=== PATIENT | female | born 1975 | race Caucasian/White ===

== ENCOUNTER 2016-10-11 11:15 | Outpatient (RCR) | payer BC, OTHER ==
[~2016-10-11 11:15] MED LIST: BENZ100C18 PO; CEFP500T4 PO; CPR500T; CYCL-97; DOXY100C49 PO; HCA25SU PR; HYDR-229; HYDR-3714 PO; ONDA4TAB11 PO; TRAM-21 PO; YAZMINE
== END 2016-10-17 | disposition home or self-care (01) ==
PROVIDERS: ATTEND Orthopaedic Surgery Orthopaedic Surgery of the Spine
DX: M54.5 Low back pain (principal)

== ENCOUNTER 2016-12-13 11:15 | Outpatient (RCR) | payer OTHER | END 2016-12-14 08:48 | disposition home or self-care (01) | PROVIDERS: ATTEND Orthopaedic Surgery Orthopaedic Surgery of the Spine | DX: M54.5 Low back pain (principal); M54.2 Cervicalgia ==

== ENCOUNTER 2017-08-02 13:35 | Outpatient (RCR) | payer BC | END 2017-09-20 09:10 | disposition home or self-care (01) | DX: M25.552 Pain in left hip (principal); M54.5 Low back pain ==

== ENCOUNTER 2018-05-13 13:58 | Outpatient (RCR) | payer BC | END 2018-07-10 | disposition home or self-care (01) | DX: M25.512 Pain in left shoulder (principal); M54.6 Pain in thoracic spine ==

== ENCOUNTER → 2019-02-07 | Outpatient (CLI) | payer BC ==
--- NOTE | 2019-02-07 17:05 | Diagnostic Imaging Report ---
INDICATION: Routine screening. COMPARISON: Comparison is made with prior mammograms from 10/18/2015 and 08/25/2013. TECHNIQUE: 2-D and 3-D bilateral screening mammography was performed. The current study was also evaluated with a Computer Aided Detection (CAD) system. 3-D tomosynthesis was also performed and reviewed. FINDINGS: Scattered fibroglandular densities are identified bilaterally. A density in the central right breast on the CC view appears slightly more prominent on this current exam. No corresponding density on the right is seen. Additional views are recommended. Left breast is unremarkable. No suspicious calcifications are seen. There are benign calcifications present. Axillae are unremarkable. IMPRESSION: Right breast density. Additional views are recommended for further evaluation. ACR BI-RADS Category 0: Incomplete. (Needs additional imaging evaluation). Result letter will be mailed to the patient. Note: At least 10% of breast cancer is not imaged by mammography. Dictated by: Dictated on workstation # [id number]
== END ==
LOC: RAD 14:33
PROVIDERS: ATTEND Nurse Practitioner Family
DX: Z12.31 Encounter for screening mammogram for malignant neoplasm of breast (principal)
CPT/HCPCS: 77067

== ENCOUNTER → 2019-02-21 | Outpatient (CLI) | payer BC ==
--- NOTE | 2019-02-21 16:57 | Diagnostic Imaging Report ---
INDICATION: Right breast density. Patient presents for additional views. COMPARISON: Correlation is made with screening study from 02/07/2019. EXAMINATION: Unilateral right 2D and 3D diagnostic mammography was performed including spot compression CC and 90 degree lateral view. FINDINGS: Initial views fail to demonstrate a discrete mass. The area of density noted on the screening CC view shows normal dispersion and most likely represents superimposed fibroglandular tissue. No suspicious calcifications are seen. IMPRESSION: Additional views fail to demonstrate a discrete mass. The patient may return to routine annual screening mammography. ACR BI-RADS Category 1: Negative. Result letter will be mailed to the patient. Note: At least 10% of breast cancer is not imaged by mammography. Dictated by: Dictated on workstation # [id number]
== END ==
LOC: RAD 13:43
PROVIDERS: ATTEND Nurse Practitioner Family
DX: R92.2 Inconclusive mammogram (principal)

== ENCOUNTER → 2019-04-29 | Outpatient (CLI) | payer BC ==
--- NOTE | 2019-04-29 14:54 | Diagnostic Imaging Report ---
INDICATION: Cough. TIME OF EXAM: 2:13 PM CORRELATION is made with prior chest from 08/01/2012. FINDINGS: The heart size is normal. The pulmonary vascularity is unremarkable. The lungs are clear. No infiltrate, effusion or pneumothorax is detected. IMPRESSION: No acute cardiopulmonary process is detected. Dictated by: Dictated on workstation # [id number]
== END ==
LOC: RAD 13:44
PROVIDERS: ATTEND Nurse Practitioner Family
DX: R05 Cough (principal)
CPT/HCPCS: 71046

== ENCOUNTER → 2020-02-16 | Outpatient (CLI) | payer BC ==
--- NOTE | 2020-02-16 16:49 | Diagnostic Imaging Report ---
PROCEDURE: US Non-ob pelvis comp/trans. TECHNIQUE: Multiple realtime grayscale images were obtained of the pelvis in various projections endovaginally. Transabdominal imaging was also performed. INDICATION: Irregular menses. FINDINGS: Uterus measures 7.7 x 4.2 x 4.6 cm. There is a slightly hypoechoic solid nodule in the fundus of the uterus measuring 2.6 x 2 cm. Endometrial stripe is 3 mm. The right ovary measures 4.5 x 4.2 x 3.9 cm. There is a complex hypoechoic mass in the right ovary measuring approximately 4 x 4 cm. There is no free fluid. The left ovary is not visualized. IMPRESSION: 1. Right adnexal mass complex and partially solid in nature measuring upwards of 4 cm. Follow-up is indicated. Would consider CT scan of the pelvis with and without contrast. 2. The myometrial fundal mass consistent with fibroid measuring 2.6 cm in greatest dimension. Dictated by: Dictated on workstation # [id number]
--- NOTE | 2020-02-17 10:27 | Diagnostic Imaging Report ---
INDICATION: Routine screening. COMPARISON: 02/07/2019 and 10/18/2015. TECHNIQUE: 2D and 3D bilateral screening mammography was performed with CAD. FINDINGS: Both breasts remain heterogeneously dense, limiting the sensitivity of mammography. The parenchymal pattern is stable. No mass or malignant appearing microcalcifications are seen. The axillae are unremarkable. IMPRESSION: No mammographic features suspicious for malignancy are identified. ACR BI-RADS Category 1: Negative. Result letter will be mailed to the patient. Note: At least 10% of breast cancer is not imaged by mammography. Dictated by: Dictated on workstation # [id number]
== END ==
LOC: RAD 14:16
PROVIDERS: ATTEND Family Medicine
DX: Z12.31 Encounter for screening mammogram for malignant neoplasm of breast (principal); N92.6 Irregular menstruation, unspecified; R22.2 Localized swelling, mass and lump, trunk
CPT/HCPCS: 76830; 76856; 77063; 77067

== ENCOUNTER → 2020-02-23 | Outpatient (CLI) | payer BC ==
[~2020-02-23] MED LIST changes: +CATHETER FLUSH 10 ML SYR IV PRN; +HOLD METFORMIN - RECEIVED CONTRAST 20 ML VIAL IV SCH; +IOHEXOL 350 MG/ML 100 ML (OMNIPAQUE 350) VIAL IV ONE; +NS 100 ML (IVPB) BAG IV ONE
--- NOTE | 2020-02-23 16:56 | Diagnostic Imaging Report ---
PROCEDURE; CT pelvis with and without contrast. TECHNIQUE: After oral contrast administration, imaging was obtained from the iliac crest to the lesser trochanters. Repeat imaging was performed after intravenous contrast administration. Auto Exposure Controls were utilized during the CT exam to meet ALARA standards for radiation dose reduction. INDICATION: Pelvic pain and right groin pain. Multiple menstrual cycles this month. FINDINGS: The uterus is not enlarged. The ovaries show mild enlargement on the right with multiple cysts. Right ovary measures approximately 4.3 cm in greatest dimension. There are no pelvic masses noted. There is no free fluid. No free air. Bladder is nondistended. There is enhancement of the bladder on delayed images. Bowel gas pattern appears normal. The colon shows normal stool and gas pattern. The appendix is not specifically identified. There is no evidence of appendicolith. No free air or free fluid. No iliac chain adenopathy of pathologic size. No inguinal adenopathy. No evidence of hernia. No blastic or lytic bony changes. IMPRESSION: Mild enlargement of the right ovary showing several small cysts. No other abnormalities noted. Dictated by: Dictated on workstation # [id number]
== END ==
LOC: RAD 16:15
PROVIDERS: ATTEND Family Medicine
DX: N83.201 Unspecified ovarian cyst, right side (principal)
CPT/HCPCS: 72194

== ENCOUNTER → 2020-02-24 | Outpatient (RCR) | payer BC ==
[~2020-02-24] MED LIST changes: -CATHETER FLUSH 10 ML SYR IV PRN; -HOLD METFORMIN - RECEIVED CONTRAST 20 ML VIAL IV SCH; -IOHEXOL 350 MG/ML 100 ML (OMNIPAQUE 350) VIAL IV ONE; -NS 100 ML (IVPB) BAG IV ONE
== END | disposition home or self-care (01) ==
DX: M54.6 Pain in thoracic spine (principal)

== ENCOUNTER → 2020-03-31 | Outpatient (CLI) | payer BC ==
[~2020-03-31] MED LIST changes: +GADOBUTROL 10 MMOL/10 ML (GADAVIST) VIAL IV ONE
--- NOTE | 2020-03-31 18:08 | Diagnostic Imaging Report ---
EXAMINATION: MRI of the pelvis without and with contrast. COMPARISON: CT pelvis from 02/23/2020. HISTORY: Right adnexal mass evaluation. TECHNIQUE: Multiplanar, multisequence MRI of the pelvis was performed before and after the intravenous administration of IV contrast. FINDINGS: The uterus is anteverted and anteflexed measuring 5.5 x 4.4 x 8.8 cm. The endometrium is thin and homogeneous. The junctional zone is normal. There is a 1.0 cm anterior fundal intramural uterine fibroid. Normal low signal cervical stroma. The vagina is nondistended which limits evaluation. The visualized wall appears smooth. The left ovary is normal in size and appearance. The right ovary is enlarged measuring 4.3 x 4.0 x 3.9 cm. The ovary contains multiple foci of T2/T1 hypointensity and demonstrates enhancement on post contrast images. The urinary bladder is normal. IMPRESSION: 1. A 4.3 cm lesion of the right ovary with imaging characteristics suggesting an ovarian fibroma. 2. A 1.0 cm intramural uterine fibroid. Dictated by: Dictated on workstation # [id number]
== END ==
LOC: RAD 15:30
DX: D25.1 Intramural leiomyoma of uterus (principal); N83.9 Noninflammatory disorder of ovary, fallopian tube and broad ligament, unspecified
CPT/HCPCS: 72197

== ENCOUNTER 2020-04-13 13:45 | Outpatient (RCR) | payer BC ==
[~2020-04-13 13:45] MED LIST changes: -GADOBUTROL 10 MMOL/10 ML (GADAVIST) VIAL IV ONE
== END 2020-05-26 11:14 | disposition home or self-care (01) ==
DX: M54.6 Pain in thoracic spine (principal)

== ENCOUNTER 2020-08-20 10:00 | Outpatient (RCR) | payer BC | END 2020-08-24 | disposition home or self-care (01) | DX: M54.6 Pain in thoracic spine (principal); R29.898 Other symptoms and signs involving the musculoskeletal system ==

== ENCOUNTER 2020-11-25 08:45 | Outpatient (RCR) | payer BC | END 2020-12-07 | disposition home or self-care (01) | DX: M54.6 Pain in thoracic spine (principal); R29.898 Other symptoms and signs involving the musculoskeletal system ==

== ENCOUNTER → 2021-02-17 | Outpatient (CLI) | payer BC ==
--- NOTE | 2021-02-17 14:55 | Diagnostic Imaging Report ---
Digital mammogram. Indication: Bilateral screening This study was compared to the prior exam of 02/16/2020, 02/07/2019 and 10/18/2015. At this time there are no current complaints. The current study was also evaluated with a Computer Aided Detection (CAD) system. FINDINGS: The fibroglandular tissue in both breasts is heterogeneously dense. This does limit the sensitivity of this exam. Overall, there does not appear to have been any significant change when compared to the prior study. No primary or secondary sign of malignancy is noted. IMPRESSION: There is no radiographic evidence for malignancy. ACR BI-RADS Category 1: Negative. Result letter will be mailed to the patient. Note: At least 10% of breast cancer is not imaged by mammography. Dictated by: Dictated on workstation # [id number]
== END ==
LOC: RAD 07:30
PROVIDERS: ATTEND Nurse Practitioner Family
DX: Z12.31 Encounter for screening mammogram for malignant neoplasm of breast (principal)
CPT/HCPCS: 77063; 77067

== ENCOUNTER → 2021-03-07 | Outpatient (CLI) | payer BC ==
[~2021-03-07] MED LIST changes: +RT-ALBUTEROL SULF 2.5 MG/3 ML PRE-MIX VIAL INH ONE
== END ==
LOC: RT 08:00
PROVIDERS: ATTEND Nurse Practitioner Family
DX: J45.21 Mild intermittent asthma with (acute) exacerbation (principal)
CPT/HCPCS: 94060; 94726; 94729

== ENCOUNTER → 2021-03-28 | Outpatient (CLI) | payer BC ==
[~2021-03-28] MED LIST changes: -RT-ALBUTEROL SULF 2.5 MG/3 ML PRE-MIX VIAL INH ONE
--- NOTE | 2021-03-28 09:41 | Diagnostic Imaging Report ---
CLINICAL INDICATION: Patient with chronic low back pain with recent coughing episode which has left her with right leg cramping and right bottom of foot strain sensation. EXAM: MRI of the lumbar spine performed without IV contrast. Sagittal T2, sagittal T1, sagittal T2 fat-sat, and axial T2. COMPARISON: MRI of the lumbar spine without contrast dated 11/29/2015. FINDINGS: There is no acute lumbar spine fracture or dislocation. Questionable chronic bilateral pars defects involving the L5 vertebra. There is no significant paraspinal soft tissue abnormality. The visualized portions of the distal thoracic spinal cord, conus medullaris, and cauda equina nerve roots are unremarkable. The conus medullaris tip is seen at the upper L1 vertebral body level. There are small degenerative spurs involving the lumbar spine. There is multilevel lower lumbar spine facet arthropathy. T12-L1, L1-L2, L2-L3, and L3-L4: Mild bilateral facet arthropathy; otherwise, these levels are unremarkable. L4-L5: There is moderate bilateral facet arthropathy. There is subtle disk bulging in the foraminal regions. There is no significant central canal or neuroforaminal narrowing. L5-S1: There is interval development of a moderate sized disk extrusion/herniation extending up the central/left paracentral aspect of the L5 vertebra. This area of disk extrusion measures roughly 8 mm x 11 mm x 14 mm (AP x Trans x CC) with associated cephalad disk migration. There is severe central canal stenosis and encroachment upon the non-exited bilateral S1 nerve roots. There is mild right bony neuroforaminal narrowing and no significant left bony neuroforaminal narrowing. IMPRESSION: 1: There is interval development of a moderate sized L5-S1 disk extrusion/herniation with cephalad disk migration in the central and left paracentral regions. There is associated severe central canal stenosis and encroachment upon the non-exited bilateral S1 nerve roots. 2: Questionable chronic bilateral L5 pars defects. 3: The remainder of the lumbar spine shows no other significant degenerative disease. Dictated by: Dictated on workstation # [id number]
== END ==
LOC: RAD 08:00
PROVIDERS: ATTEND Nurse Practitioner Family
DX: M48.08 Spinal stenosis, sacral and sacrococcygeal region (principal); M51.27 Other intervertebral disc displacement, lumbosacral region
CPT/HCPCS: 72148

== ENCOUNTER 2021-04-21 15:25 | Outpatient (RCR) | payer BC | END 2021-04-22 | disposition home or self-care (01) | DX: M54.6 Pain in thoracic spine (principal) ==

== ENCOUNTER 2021-04-27 10:45 | Outpatient (RCR) | payer BC | END 2021-05-23 | disposition home or self-care (01) | DX: M54.6 Pain in thoracic spine (principal) ==

== ENCOUNTER → 2021-10-20 | Outpatient (RCR) | payer BC | END | disposition home or self-care (01) | DX: M54.50 Low back pain, unspecified (principal); M79.604 Pain in right leg; M79.605 Pain in left leg ==

== ENCOUNTER 2021-11-10 11:17 | Outpatient (RCR) | payer BC | END 2021-11-20 | disposition home or self-care (01) | DX: M54.50 Low back pain, unspecified (principal) ==

== ENCOUNTER 2021-12-19 11:14 | Outpatient (RCR) | payer BC | END 2021-12-21 | disposition home or self-care (01) | DX: M54.50 Low back pain, unspecified (principal) ==

== ENCOUNTER 2022-01-19 09:43 | Outpatient (RCR) | payer BC | END 2022-01-20 | disposition home or self-care (01) | DX: M54.50 Low back pain, unspecified (principal) ==

== ENCOUNTER 2022-02-15 15:54 | Outpatient (RCR) | payer BC | END 2022-02-20 | disposition home or self-care (01) | DX: M54.50 Low back pain, unspecified (principal) ==

== ENCOUNTER → 2022-02-20 | Outpatient (CLI) | payer BC ==
--- NOTE | 2022-02-20 10:24 | Diagnostic Imaging Report ---
INDICATION: Routine screening. Comparison is made with prior mammogram 02/09/2021 and 02/16/2020. 2-D and 3-D bilateral screening mammography was performed with CAD. Both breasts are heterogeneously dense, limiting the sensitivity of mammography. There is a density in the outer right breast which appears to be more prominent on today's study. Additional views would be recommended. No other masses are identified. No malignant-appearing microcalcifications are seen. Axillae are unremarkable. IMPRESSION: Right breast density. Additional views are recommended for further evaluation. ACR BI-RADS Category 0: Incomplete. (Needs additional imaging evaluation). Result letter will be mailed to the patient. Note: At least 10% of breast cancer is not imaged by mammography. BI-RADS Category 0 Dictated by: Dictated on workstation # [id number]
== END ==
LOC: RAD 08:56
PROVIDERS: ATTEND Nurse Practitioner Family
DX: Z12.31 Encounter for screening mammogram for malignant neoplasm of breast (principal); N64.89 Other specified disorders of breast
CPT/HCPCS: 77063; 77067

== ENCOUNTER → 2022-03-03 | Outpatient (CLI) | payer BC ==
--- NOTE | 2022-03-03 14:12 | Diagnostic Imaging Report ---
Indication: Right breast density. Patient presents for additional views. Correlation is made with prior mammogram from 02/20/2022. Unilateral right 2-D and 3-D diagnostic mammography was performed. This includes spot compression CC and ML views as well as conventional 90 degrees lateral views. There is a persistent somewhat ovoid density in the outer right breast approximately 5-6 cm from the nipple. This projects just below the nipple line on the MLO view. No other abnormalities are seen. IMPRESSION: BI-RADS 0 Persistent density in the lower outer right breast 5 to 6 cm from the nipple. Further evaluation with ultrasound is recommended and will be performed today. ACR BI-RADS Category 0: Incomplete. (Needs additional imaging evaluation). Result letter will be mailed to the patient. Note: At least 10% of breast cancer is not imaged by mammography. Dictated by: Dictated on workstation # [id number]
--- NOTE | 2022-03-03 14:12 | Diagnostic Imaging Report ---
Indication: Right breast density. Correlation is made with diagnostic mammogram earlier the same day and screening study from 02/20/2022. Sonographic interrogation of the lower outer right breast was performed. There is an area of somewhat ill-defined hypoechogenicity at the 8:00 location of the right breast, 5 cm from the nipple. A somewhat ovoid region measures approximately 2.0 x 0.5 x 1.4 cm. There are some additional areas just deep to this which are indeterminate. This area may correspond to the density noted mammographically. There is some questionable shadowing present. No other abnormalities are seen. IMPRESSION: BI-RADS Category 4. Ill-defined heterogeneous region of hypoechogenicity at the 8:00 location of the right breast, 5 cm from the nipple. This may account for the area of density noted mammographically. Tissue sampling would be recommended. This would be amenable to ultrasound-guided core biopsy. ACR BI-RADS Category 4: Suspicious abnormality. Result letter will be mailed to the patient. Note: At least 10% of breast cancer is not imaged by mammography. Dictated by: Dictated on workstation # [id number]
== END ==
LOC: RAD 12:45
PROVIDERS: ATTEND Nurse Practitioner Family
DX: R92.2 Inconclusive mammogram (principal)
CPT/HCPCS: 76642; 77065; G0279

== ENCOUNTER → 2022-03-15 | Outpatient (CLI) | payer BC ==
[~2022-03-15] VITALS: Ht 167.6 cm; Wt 88.6 kg
[~2022-03-15] MED LIST changes: +LIDOCAINE 1% INJ 30 ML (XYLOCAINE) VIAL INJ ONE
--- NOTE | 2022-03-15 12:00 | Diagnostic Imaging Report ---
Indication: Right breast area of hypoechogenicity and heterogeneity. Patient presents for ultrasound-guided biopsy. The patient brought to the sonographic suite and placed on table in supine position. Ultrasound imaging of the right breast was performed to evaluate appropriate entry site. The right breast was then prepped and draped in usual sterile fashion. Small amount 1% lidocaine was utilized for local anesthesia. A total of 4 passes were made into the area of heterogeneous hypoechogenicity at the 8:00 location of the right breast, utilizing a 14-gauge achieve needle. Core biopsies were obtained. Next, marker clip was diploid. Hemostasis was obtained using manual compression. Patient tolerated the procedure well and was sent for postprocedure mammogram in satisfactory condition. IMPRESSION: Successful ultrasound-guided core biopsy of the area of heterogeneity and hypoechogenicity 8 o'clock location right breast. Pathology results are currently pending. Dictated by: Dictated on workstation # [id number]
--- NOTE | 2022-03-15 12:03 | Diagnostic Imaging Report ---
INDICATION: Status post right breast ultrasound-guided biopsy. Unilateral right 2-D CC and ML mammography was performed after patient underwent ultrasound-guided core biopsy. Images demonstrate a marker clip in the outer right breast. IMPRESSION: Marker clip placement, status post ultrasound-guided right breast biopsy. Dictated by: Dictated on workstation # [id number]
== END ==
LOC: RAD 10:00
PROVIDERS: ATTEND Family Medicine
DX: R92.8 Other abnormal and inconclusive findings on diagnostic imaging of breast (principal)
CPT/HCPCS: 19083; 77065; G0279

== ENCOUNTER 2022-03-21 08:00 | Outpatient (RCR) | payer BC ==
[~2022-03-21 08:00] MED LIST changes: -LIDOCAINE 1% INJ 30 ML (XYLOCAINE) VIAL INJ ONE
== END 2022-03-22 | disposition home or self-care (01) ==
DX: M54.50 Low back pain, unspecified (principal)

== ENCOUNTER 2022-04-19 14:01 | Outpatient (RCR) | payer BC | END 2022-04-22 | disposition home or self-care (01) | DX: M54.50 Low back pain, unspecified (principal) ==

== ENCOUNTER → 2022-05-23 | Outpatient (RCR) | payer BC | END | disposition home or self-care (01) | DX: M54.50 Low back pain, unspecified (principal) ==

== ENCOUNTER 2022-06-14 08:59 | Outpatient (RCR) | payer BC | END 2022-06-20 | disposition home or self-care (01) | DX: M54.50 Low back pain, unspecified (principal) ==

== ENCOUNTER 2022-07-18 09:46 | Outpatient (RCR) | payer BC | END 2022-07-21 | disposition home or self-care (01) | DX: M54.50 Low back pain, unspecified (principal) ==

== ENCOUNTER 2022-08-16 09:09 | Outpatient (RCR) | payer BC | END 2022-08-20 | disposition home or self-care (01) | DX: M54.50 Low back pain, unspecified (principal) ==

== ENCOUNTER 2022-09-13 08:00 | Outpatient (RCR) | payer BC | END 2022-09-20 | disposition home or self-care (01) | DX: M54.50 Low back pain, unspecified (principal); R26.89 Other abnormalities of gait and mobility ==

== ENCOUNTER 2022-09-25 09:53 | Outpatient (RCR) | payer BC | END 2022-10-20 | disposition home or self-care (01) | DX: M54.50 Low back pain, unspecified (principal) ==

== ENCOUNTER 2022-11-16 08:17 | Outpatient (RCR) | payer BC | END 2022-11-20 | disposition home or self-care (01) | DX: M54.50 Low back pain, unspecified (principal) ==

== ENCOUNTER 2022-12-20 11:11 | Outpatient (RCR) | payer BC | END 2022-12-21 | disposition home or self-care (01) | DX: M54.50 Low back pain, unspecified (principal) ==

== ENCOUNTER 2023-02-13 15:38 | Outpatient (RCR) | payer BC | END 2023-02-20 | disposition home or self-care (01) | DX: M54.50 Low back pain, unspecified (principal) ==

== ENCOUNTER 2023-03-12 10:15 | Outpatient (RCR) | payer BC | END 2023-03-22 | disposition home or self-care (01) | DX: M54.50 Low back pain, unspecified (principal) ==

== ENCOUNTER → 2023-03-21 | Outpatient (CLI) | payer BC ==
--- NOTE | 2023-03-21 09:49 | Diagnostic Imaging Report ---
Indication: Routine screening. Comparison is made with prior mammograms 02/20/2022 and 03/15/2022 as well as 02/17/2021. 2-D and 3-D bilateral screening mammography was performed with CAD. Both breasts are heterogeneously dense, limiting the sensitivity of mammography. The parenchymal pattern is stable. There is a biopsy clip in the outer right breast. No mass or malignant-appearing microcalcifications are identified. Axillae are unremarkable. IMPRESSION: BI-RADS Category 2 No mammographic features suspicious for malignancy are identified. ACR BI-RADS Category 2: Benign findings. Result letter will be mailed to the patient. Note: At least 10% of breast cancer is not imaged by mammography. Dictated by: Dictated on workstation # [id number]
== END ==
LOC: RAD 07:31
PROVIDERS: ATTEND Family Medicine
DX: Z12.31 Encounter for screening mammogram for malignant neoplasm of breast (principal)
CPT/HCPCS: 77063; 77067